=== PATIENT | female | born 1960 | race Caucasian/White ===

== ENCOUNTER 2017-06-17 13:30 | Emergency (ER) | payer BC, OTHER ==
[2017-06-17] MEDS ORDERED: ACETAMINOPHEN TAB 500 MG TAB PO STA (14:26)
[2017-06-17 14:33] VITALS: BP 138/84; PULSE 72; RESP 17; TEMP 98.5
--- NOTE | 2017-06-17 14:35 | ED ---
Wound/Laceration HPI - General Chief Complaint: Wound/Laceration Stated Complaint: Laceration-[facility] Time Seen by Provider: 06/17/17 13:56 Source: patient, RN notes reviewed Mode of arrival: ambulatory Limitations: no limitations - History of Present Illness Initial Comments: This is a 56-year-old female who presents to the emergency department with chief complaint of work-related laceration. Patient states that at approximately 12:30 this afternoon she was working with a piece of metal. She states that she went to reach for paint and accidentally lacerated her left upper forearm with the piece of metal. Patient denies any other injuries or trauma. She states that her tetanus vaccination was recently updated on June 09. Denies recent fevers or chills, chest pain shortness breath, abdominal pain , nausea or vomiting or dizziness or headache. - Related Data Allergies Allergy/AdvReac Type Severity Reaction Status Date / Time No Known Allergies Allergy Verified 06/17/17 13:37 Review of Systems ROS Statement: Those systems with pertinent positive or pertinent negative responses have been documented in the HPI. ROS Other: All systems not noted in ROS Statement are negative. Past Medical History Past Medical History: No Reported History History of Any Multi-Drug Resistant Organisms: None Reported Past Surgical History: Tonsillectomy, Tubal Ligation Additional Past Surgical History / Comment(s): lap band Past Psychological History: No Psychological Hx Reported Smoking Status: Current every day smoker Past Alcohol Use History: None Reported Past Drug Use History: None Reported General Exam - General Exam Comments Initial Comments: General: Awake and alert, well-developed; in no apparent distress. HEENT: Head atraumatic, normocephalic. Pupils are equal, round and reactive to light. Extraocular movements intact. Oropharynx moist without erythema or exudate. Neck: Supple. Normal ROM. Cardiovascular: Regular rate and rhythm. No murmurs, rubs or gallops. Chest symmetrical. Respiratory: Lungs clear to auscultation bilaterally. No wheezes, rales or rhonchi. Normal respiratory effort with no use of accessory muscles. Musculoskeletal: Normal range of motion of the left upper extremity. There is an approximately 3.0 cm linear laceration proximal medial left forearm. No active bleeding. Sensation is intact. Radial pulses are 2+ equal and palpable bilaterally. Skin: [place], warm and dry without rashes. Laceration as noted above. Neurological: Alert and oriented x3. CN II-XII grossly intact. Speech is fluent and answers are appropriate. No focal neuro deficits. Psychiatric: Normal mood and affect. No overt signs of depression or anxiety noted. Limitations: no limitations Course Vital Signs 06/17/17 13:37 Temperature 99.9 F H Pulse Rate 77 Respiratory 18 Rate Blood Pressure 149/84 O2 Sat by Pulse 100 Oximetry Procedures - Laceration Laceration #1 Consent Obtained: verbal consent Indication: laceration Site: upper extremity (Proximal medial left forearm) Size (cm): 3 Description: linear Depth: simple, single layer Anesthetic Used: lidocaine 1% Anesthesia Technique: local infiltration Amount (mls): 4 Pre-repair: wound explored, irrigated extensively, deep structures intact Type of Sutures: nylon Size of Sutures: 4-0 Number of Sutures: 7 Technique: simple, interrupted Patient Tolerated Procedure: well, no complications Medical Decision Making - Medical Decision Making This is a 56-year-old female who presents to the emergency department with chief complaint of left forearm laceration. Patient sustained an approximately 3.0 cm linear laceration to the proximal medial left forearm. No active bleeding. 7 sutures were placed and patient tolerated well without complication. She is neurovascularly intact and in no acute distress. Normal range of motion of the left upper extremity. Recommended removal of sutures in the next 10-14 days. Patient admits to recent update of her tetanus vaccination. Patient will be discharged home at this time. She is in agreement and voices understanding. All questions were answered. Disposition Clinical Impression: Forearm laceration Disposition: HOME SELF-CARE Condition: Good Instructions: Laceration (ED), Care For Your Stitches (ED) Additional Instructions: Please have sutures removed in 10-14 days. Please follow up with primary care provider within 1-2 days. Return to emergency department if symptoms should worsen or any concerns arise. Is patient prescribed a controlled substance at d/c from ED?: No Referrals: Seeam Perez DO [Primary Care Provider] - 1-2 days Time of Disposition: 14:30
== END 2017-06-17 14:51 | disposition home or self-care (01) ==
LOC: EC 13:30
DX: S51.812A Laceration without foreign body of left forearm, initial encounter (principal); F17.200 Nicotine dependence, unspecified, uncomplicated; W26.8XXA Contact with other sharp object(s), not elsewhere classified, initial encounter; Y99.0 Civilian activity done for income or pay
CPT/HCPCS: 12002; 99282

== ENCOUNTER → 2017-06-25 | Outpatient (CLI) | payer BC ==
--- NOTE | 2017-06-25 12:10 | MM ---
Reason for exam: screening (asymptomatic). Last mammogram was performed 4 years and 3 months ago. History: Patient is postmenopausal. Family history of breast cancer in maternal grandmother and breast cancer in maternal aunt. Benign right mammotome panel of the right breast, November 11, 2005. Physical Findings: A clinical breast exam by your physician is recommended on an annual basis and results should be correlated with mammographic findings. MG 3D Screening Mammo W/Cad Bilateral CC and MLO view(s) were taken. Prior study comparison: March 29, 2013, bilateral digital screening mammo w/CAD. March 10, 2012, bilateral digital screening mammo w/CAD. The breast tissue is heterogeneously dense. This may lower the sensitivity of mammography. Finding #1: There is a new 8 mm circumscribed round mass in the upper outer quadrant, posterior position of the left breast. Finding #2: There are few typically benign round calcifications in both breasts. Benign vascular calcifications in the right breast. Previous mammotome biopsy in the right breast. There is a chronic nodularity in the right breast at clip. New group of indeterminate calcifications left middle posterior central aspect. ASSESSMENT: Incomplete: need additional imaging evaluation, BI-RAD 0 RECOMMENDATION: Special view mammogram and ultrasound of the left breast. Patient should continue monthly self breast exams.
== END ==
LOC: RADMAMWWP 08:06
PROVIDERS: ATTEND Family Medicine
DX: Z12.31 Encounter for screening mammogram for malignant neoplasm of breast (principal)
CPT/HCPCS: 77063; 77067

== ENCOUNTER → 2017-07-17 | Outpatient (CLI) | payer BC ==
--- NOTE | 2017-07-17 12:27 | MM ---
Reason for exam: additional evaluation requested from abnormal screening. Last mammogram was performed 1 month ago. History: Patient is postmenopausal. Family history of breast cancer in maternal grandmother and breast cancer in maternal aunt. Benign right mammotome panel of the right breast, November 11, 2005. Physical Findings: Nurse Summary: 1 x 1cm nodule in the left breast upper outer quadrant at 1 o'clock (nurse ts). MG 3D Work Up W/Cad LT CC with magnification, ML with magnification, and ML view(s) were taken of the left breast. Prior study comparison: June 25, 2017, bilateral MG 3d screening mammo w/cad. March 29, 2013, bilateral digital screening mammo w/CAD. The breast tissue is heterogeneously dense. This may lower the sensitivity of mammography. Finding: There are intermediate concern, suspicious, fine, grouped/clustered calcifications in the upper outer quadrant, posterior position of the left breast, 7cm from the nipple. New finding. These results were verbally communicated with the patient and result sheet given to the patient on 07/17/17. ASSESSMENT: Incomplete: need additional imaging evaluation, BI-RAD 0 RECOMMENDATION: Ultrasound of the left breast.
--- NOTE | 2017-07-17 12:31 | USB ---
Reason for exam: additional evaluation requested from abnormal screening. History: Patient is postmenopausal. Family history of breast cancer in maternal grandmother and breast cancer in maternal aunt. Benign right mammotome panel of the right breast, November 11, 2005. US Breast Workup Limited LT Left limited breast ultrasound including focal area of concern, retroareolar and axilla demonstrates a 2.8 x 0.9 x 0.7cm oval, node at the axilla and a 1.4 x 0.7 x 0.8cm oval node at the axilla. Possibly corresponding to nodular density on mammogram. Not definitely confirmed. Consider work up of mammogram nodule left upper outer quadrant 10.6cm from nipple. These results were verbally communicated with the patient and result sheet given to the patient on 07/17/17. ASSESSMENT: Suspicious, BI-RAD 4 (on mammogram) RECOMMENDATION: Surgical consultation and stereotactic core biopsy of the left breast. (left breast calcifications) Called Dr. Perez with mammographic findings and has scheduled an appointment for the patient for 09/04/17 at 10:[address] Mcknight. Biopsy scheduled for 07/28/17 at 8:00. PRELIMINARY REPORT CALLED AND FAXED TO DR. MCKNIGHT ON 07/17/17.
== END | disposition home or self-care (01) ==
LOC: RADMAMWWP 07:32
PROVIDERS: ATTEND Family Medicine
DX: R92.8 Other abnormal and inconclusive findings on diagnostic imaging of breast (principal)
CPT/HCPCS: 77061; 77065

== ENCOUNTER → 2017-07-28 | Day surgery (SDC) | payer BC ==
[2017-07-28 07:20] VITALS: RESP 16; BMI 28.3
[2017-07-28 09:38] VITALS: BP 147/84; PULSE 57; TEMP 98.1
--- NOTE | 2017-07-28 15:24 | MM ---
EXAMINATION TYPE: MG stereo VAD BX LT DATE OF EXAM: 07/28/2017 COMPARISON: 07/17/2017 and 06/25/2017 CLINICAL HISTORY: 57-year-old female referred for biopsy of left breast microcalcifications TECHNIQUE: Stereotactic guided core biopsy of the left breast. FINDINGS: The procedure of stereotactic guided core biopsy was explained to the patient. Benefits, alternatives, and risks were discussed. An informed consent was then obtained. The shortness pathway for biopsy was chosen. Shortness pathway was CC from below approach. I performed the localization as well as the remainder of the procedure. A vacuum assisted biopsy gun was used to obtain 8 core samples. The patient tolerated the procedure well without any immediate complication. The patient was kept in the radiology department for short stay after the procedure and then discharged home in stable condition. Targeted calcifications are identified in specimen mammogram. Post biopsy mammogram shows the clip located slightly anteriorly to the targeted microcalcifications. Trace residual calcifications are noted on the CC view. IMPRESSION: SUCCESSFUL, UNCOMPLICATED STEREOTACTIC GUIDED CORE BIOPSY OF LOWER OUTER QUADRANT LEFT BREAST MICROCALCIFICATIONS; FULL PATHOLOGY RESULTS TO FOLLOW. Pathology Results: Benign BREAST, LEFT, STEREOTACTIC CORE BIOPSY: Fibrocystic changes including dense stromal fibrosis, small cysts and microcalcifications. Recommendation Follow up mammogram of the left breast in 6 months. SEAN
== END | disposition home or self-care (01) ==
LOC: RADMAMWWP 06:56
PROVIDERS: ATTEND Surgery
DX: N60.32 Fibrosclerosis of left breast (principal); N60.02 Solitary cyst of left breast
CPT/HCPCS: 88305; 19081; A4648; J2001

== ENCOUNTER 2021-08-20 10:49 | Emergency (ER) | payer BC, OTHER ==
[2021-08-20 11:20] VITALS: BP 142/73; PULSE 90; RESP 18; TEMP 97.8
--- NOTE | 2021-08-20 11:42 | ED ---
Upper Extremity HPI - General Chief Complaint: Extremity Injury, Upper Stated Complaint: Fall-R elbow pain Time Seen by Provider: 08/20/21 11:24 Source: patient, RN notes reviewed Mode of arrival: ambulatory Limitations: no limitations - History of Present Illness Initial Comments: This a 61-year-old female presents emergency Department with chief complaint of right arm pain. Patient states she fell one week ago onto some concrete while she was trimming her yard. Patient states that she has right wrist right elbow pain states that she's had some improvement but states she still has pain with range of motion limited range of motion. No head injury no loss conscious no shoulder pain. - Related Data Home Medications Medication Instructions Recorded Confirmed lisinopriL [Zestril] 10 mg PO DAILY 07/28/17 07/28/17 Allergies Allergy/AdvReac Type Severity Reaction Status Date / Time No Known Allergies Allergy Verified 08/20/21 11:19 Review of Systems ROS Statement: Those systems with pertinent positive or pertinent negative responses have been documented in the HPI. ROS Other: All systems not noted in ROS Statement are negative. Past Medical History Past Medical History: Hypertension History of Any Multi-Drug Resistant Organisms: None Reported Past Surgical History: Bariatric Surgery, Breast Surgery, Tonsillectomy, Tubal Ligation Additional Past Surgical History / Comment(s): lap band, benign stereo right breast 2006 Past Psychological History: No Psychological Hx Reported Past Alcohol Use History: None Reported Past Drug Use History: None Reported General Exam Limitations: no limitations General appearance: alert, in no apparent distress Head exam: Present: atraumatic, normocephalic, normal inspection Eye exam: Present: normal appearance, PERRL, EOMI. Absent: scleral icterus, conjunctival injection, periorbital swelling ENT exam: Present: normal exam, normal oropharynx, mucous membranes moist Neck exam: Present: normal inspection, full ROM. Absent: tenderness, meningismus, lymphadenopathy Respiratory exam: Present: normal lung sounds bilaterally. Absent: respiratory distress, wheezes, rales, rhonchi, stridor Cardiovascular Exam: Present: regular rate, normal rhythm, normal heart sounds. Absent: systolic murmur, diastolic murmur, rubs, gallop, clicks Extremities exam: Present: other (Right wrist there is a large area of ecchymosis over the ulnar aspect, is pain with palpation, limited range of motion, and is neurovascularly intact arms department right elbow unable to fully extend pain with extension, pronation supination no proximal humerus tenderness) Skin exam: Present: warm, dry, intact, normal color. Absent: rash Course Vital Signs 08/20/21 11:16 Temperature 97.8 F Pulse Rate 90 Respiratory 18 Rate Blood Pressure 142/73 O2 Sat by Pulse 99 Oximetry Procedures - Orthopedic Splinting/Casting Injury #1 Side: right Upper Extremity Injury Location: long arm, elbow Upper Extremity Immobilizer: sling/shoulder immobilizer, posterior splint, synthetic pre-padded splint Medical Decision Making - Medical Decision Making 61-year-old presented for fall. Patient has radial head fracture. Patient was splinted and follow up with orthopedics. Return parameters were discussed. Patient not requesting meds arrival. Patient offered declined. Disposition Clinical Impression: Right radial head fracture Disposition: HOME SELF-CARE Condition: Stable Instructions (If sedation given, give patient instructions): Arm Fracture in Adults (ED) Additional Instructions: Please return to the Emergency Department if symptoms worsen or any other concerns. Is patient prescribed a controlled substance at d/c from ED?: No Referrals: None,Stated [Primary Care Provider] - 1-2 days Slava Artis MD [Medical Doctor] - 1-2 days Time of Disposition: 12:35
--- NOTE | 2021-08-20 12:10 | XR ---
EXAMINATION TYPE: XR elbow complete RT DATE OF EXAM: 08/20/2021 COMPARISON: NONE HISTORY: Pain FINDINGS: Three views of the elbow demonstrate pathologic joint effusion nondisplaced fracture involving the r adial head noted. Regional osseous structures intact. IMPRESSION: 1. Displaced radial head fracture
--- NOTE | 2021-08-20 12:11 | XR ---
EXAMINATION TYPE: XR wrist complete RT DATE OF EXAM: 08/20/2021 COMPARISON: NONE HISTORY: Pain TECHNIQUE: Four views submitted. FINDINGS: The osseous structures are intact. The joint spaces are preserved and there is no acute fracture or dislocation. Small ossified or calcified density adjacent to the ulnar styloid. Chronic. IMPRESSION: 1. No definite acute fracture or dislocation if symptoms persist, follow-up study in 7 to 10 days wo uld be suggested
== END 2021-08-20 12:59 | disposition home or self-care (01) ==
LOC: EC 10:49
DX: S52.121A Displaced fracture of head of right radius, initial encounter for closed fracture (principal); I10 Essential (primary) hypertension; W01.0XXA Fall on same level from slipping, tripping and stumbling without subsequent striking against object, initial encounter
CPT/HCPCS: 29125; 99284